=== PATIENT | female | born 2000 | race Asian ===

== ENCOUNTER 2020-06-03 12:58 | Inpatient (IN) ==
[2020-06-03] MEDS ORDERED: SODIUM CHLORIDE 0.9% 1000ML 1,000 ML IV ONE (13:42)
[2020-06-03] MEDS ORDERED: ALBUTEROL HFA 8 GM INHALER INH ONE (13:42)
[2020-06-03] MEDS ORDERED: KETOROLAC TROMETHAMINE 15 MG/ML VIAL IV STA (13:42)
[2020-06-03] MEDS ORDERED: ACETAMINOPHEN 500 MG TAB PO STA (13:42)
--- NOTE | 2020-06-03 13:52 | Emergency Department Note ---
Impression & Plan SOB (shortness of breath), Pneumonia, Leukocytosis ED Provider Note NAME: JETHRO BALDERAS AGE: 19 SEX: F : 2000 ARRIVES VIA: Walk-In INFORMANT: [Patient] ED PROVIDER(S): [Marito Mcdermott MD] CHIEF COMPLAINT: Short of breath HISTORY OF PRESENT ILLNESS: The patient is a 19-year-old female presents to the ER with body aches, fever and some shortness of breath. The patient states that her symptoms started early this morning. The patient states that this weekend, 5 days ago, she felt similar for 1 day. She was tested over the weekend for Covid and was negative. Her symptoms resolved over the last few days but then returned today. There has been no stuffy nose or sore throat. She has a slight cough. She had some nausea with some vomiting. No diarrhea. No abdominal or chest pain. The patient states that she has not had urinary complaints. She has no issue with her taste or smell. Because of the return of symptoms, she presents to the ED. She is a student at [employer] but has had no known Covid exposures. REVIEW OF SYSTEMS: See HPI for pertinent positives and negatives. A total of ten systems were reviewed and were otherwise negative. PMHx/PSHx: See Below SOCIAL HISTORY: See Below. PHYSICAL EXAM: GENERAL: Patient is in no acute distress. HEENT: No acute trauma, normocephalic atraumatic, mucous membranes moist, no nasal congestion, no scleral icterus. No throat erythema or exudate. NECK: No stridor, no adenopathy, no meningismus, trachea is midline. LUNGS: Mildly tachycardic, regular rhythm, no murmurs. HEART: Without murmurs gallops or rubs, regular rate and rhythm. ABDOMEN: Soft, nontender, bowel sounds positive, no hernias, no peritonitis. EXTREMITIES: No cyanosis or edema, full range of motion of all the joints wit hout pain or difficulty, no signs for acute trauma. NEUROLOGIC: Oriented x 3, no acute motor or sensory deficits, no focal weakness. SKIN: No rash, no jaundice, no diaphoresis. DIFFERENTIAL DIAGNOSIS: Sepsis, UTI, pneumonia, metabolic abnormality, influenza, COVID-19, electrolyte abnormalities, cardiac sources, cellulitis, UTI, bacteremia, as well as other pathologies. EMERGENCY DEPARTMENT COURSE/PROCEDURES: ECG: Indication was shortness of breath. The ECG shows a sinus tachycardia with a rate of 113. There is some nonspecific ST change. The QTc is 436. There is no ST elevation, no PVCs. Continuous Cardiac Monitoring: An order was placed for continuous cardiac monitoring. The monitor shows a rate of 88 with normal sinus rhythm. MEDICAL DECISION MAKING: There is a significant leukocytosis at 32,000, this certainly could be consistent with infection. There is a normal hemoglobin and platelet count. No significant electrolyte abnormality or kidney failure. Lactic acid level was slightly elevated indicating infection/potential sepsis. Bilirubin was slightly elevated. Procalcitonin level was slightly elevated. testing was negative. Urinalysis shows contamination, no obvious infection. Covid testing and influenza testing returned negative. Chest x-ray showed some generalized congestion to my eye, there was no obvious focal pneumonia. Chest CT does show evidence for a right-sided pneumonia. No pulmonary embolus noted. The patient presents febrile, tachycardic and short of breath. She received IV saline, 1 L. She was given IV Toradol for her body aches. She received IV cefepime as empiric antibiotic coverage. She was given albuterol via MDI, oral Tylenol. Patient is comfortable. Given her leukocytosis, given her dyspnea and findings on CT, I do think hospitalization is warranted. I spoke to the patient and correctional case manager. The on-call hospitalist was consulted. The pneumonia found by work-up certainly explains her presentation. Past Med/Surg History Medical History No significant medical problems Social History Smoking Status: Never smoker Hx Alcohol Use: Yes Alcohol type: beer and wine Hx Substance Use: No Preferred Language: True Fit Communication Ability: Effective Hydrographic Surveyor Required: No Beliefs That Will Affect Care: None Current Living Situation Comment: 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[employer] Other Information That Helps Us Care for You: No Feels Safe at Home: Yes Safety Concerns: Feels Safe At This Time Assistive Devices: Glasses Allergies Allergies Allergy/AdvReac Type Severity Reaction Status Date / Time No Known Allergies Allergy Unverified 06/03/20 15:09 Home Meds Home Medications Medication Instructions Recorded Confirmed chlorpheniramine-dextromethorp 1 ea PO UD 06/03/20 06/03/20 [Cough Syrup] ibuprofen [Advil] 400 mg PO Q6H PRN 06/03/20 06/03/20 Results & Data (ED) Vital Signs Vital Signs - 24 hr 06/03/20 13:09 06/03/20 14:10 06/03/20 15:07 Temperature 38.9 C H Temperature Source Temporal Artery Scan Pulse Rate 129 H 115 H Pulse Rate [Left] Pulse Rate from SpO2 Sensor 114 H Respiratory Rate 20 32 H Respiratory Effort / Characteristics Short of Breath SOB on Exertion Blood Pressure 110/65 Blood Pressure [Right Arm] Blood Pressure Mean 80 Blood Pressure Mean [Right Arm] Blood Pressure Position Sitting Blood Pressure Position [Right Arm] Pulse Oximetry 91 99 Oxygen Delivery Method Room Air Room Air Oxygen Flow Rate Sepsis Recent Fever Within 48 Hours Yes Sepsis New/Unexplained Change in Mental Status No Sepsis Action Taken by Nursing No Action Required 06/03/20 15:08 06/03/20 15:10 06/03/20 15:11 Temperature 37.5 C Temperature Source Oral Pulse Rate 115 H 115 H Pulse Rate [Left] 113 H Pulse Rate from SpO2 Sensor 114 H 114 H Respiratory Rate 24 30 H 42 H Respiratory Effort / Characteristics Short of Breath Blood Pressure 103/64 Blood Pressure [Right Arm] 103/64 Blood Pressure Mean 77 Blood Pressure Mean [Right Arm] 77 Blood Pressure Position Blood Pressure Position [Right Arm] Lying Pulse Oximetry 99 100 99 Oxygen Delivery Method Nasal Cannula Nasal Cannula Oxygen Flow Rate 2 Sepsis Recent Fever Within 48 Hours Sepsis New/Unexplained Change in Mental Status Sepsis Action Taken by Nursing 06/03/20 15:20 06/03/20 15:30 06/03/20 16:01 Temperature Temperature Source Pulse Rate 113 H 114 H 118 H Pulse Rate [Left] Pulse Rate from SpO2 Sensor 113 H 114 H Respiratory Rate 41 H 48 H 34 H Respiratory Effort / Characteristics Blood Pressure Blood Pressure [Right Arm] Blood Pressure Mean Blood Pressure Mean [Right Arm] Blood Pressure Position Blood Pressure Position [Right Arm] Pulse Oximetry 98 98 Oxygen Delivery Method Oxygen Flow Rate Sepsis Recent Fever Within 48 Hours Sepsis New/Unexplained Change in Mental Status Sepsis Action Taken by Nursing 06/03/20 16:10 06/03/20 16:20 06/03/20 16:26 Temperature Temperature Source Pulse Rate 115 H 113 H 105 H Pulse Rate [Left] Pulse Rate from SpO2 Sensor 106 H Respiratory Rate 54 H 46 H 24 Respiratory Effort / Characteristics Blood Pressure 103/59 L Blood Pressure [Right Arm] Blood Pressure Mean 73 Blood Pressure Mean [Right Arm] Blood Pressure Position Blood Pressure Position [Right Arm] Pulse Oximetry 98 Oxygen Delivery Method Oxygen Flow Rate Sepsis Recent Fever Within 48 Hours Sepsis New/Unexplained Change in Mental Status Sepsis Action Taken by Nursing 06/03/20 16:30 06/03/20 17:00 06/03/20 17:30 Temperature Temperature Source Pulse Rate 110 H 108 H 100 H Pulse Rate [Left] Pulse Rate from SpO2 Sensor 110 H 108 H 100 H Respiratory Rate 22 22 22 Respiratory Effort / Characteristics Blood Pressure Blood Pressure [Right Arm] Blood Pressure Mean Blood Pressure Mean [Right Arm] Blood Pressure Position Blood Pressure Position [Right Arm] Pulse Oximetry 98 97 100 Oxygen Delivery Method Oxygen Flow Rate Sepsis Recent Fever Within 48 Hours Sepsis New/Unexplained Change in Mental Status Sepsis Action Taken by Skilled Nursing Medications Current Medication List: was personally reviewed by me Laboratory Data Attestation: I reviewed the patient's lab results. Result diagrams: 06/03/20 14:35 06/03/20 14:35 Lab Results 06/03/20 06/03/20 06/03/20 Range/Units 14:03 14:03 14:03 WBC (4.8-10.8) K/uL RBC (4.2-5.4) M/uL Hgb (12.0-16.0) g/dL Hct (37-47) % MCV (80-100) fL MCH (25-34) pg MCHC (32-36) g/dL RDW Std Deviation (36.4-46.3) fL RDW Coeff of Tevin (11.5-14.5) % Plt Count (130-400) K/uL MPV (7.4-10.4) fL Immature Gran % (Auto) % Neut % (Auto) % Lymph % (Auto) % [place] % (Auto) % Eos % (Auto) % Baso % (Auto) % Neut # (Auto) (1.4-6.5) K/uL Lymph # (Auto) (1.2-3.4) K/uL [place] # (Auto) (0.11-0.59) K/uL Eos # (Auto) (0-0.5) K/uL Baso # (Auto) (0-0.2) K/uL Immature Gran # (Auto) (0.00-0.02) K/uL ESR (0-21) mm/hr Sodium (136-145) mmol/L Potassium (3.5-5.1) mmol/L Chloride (98-107) mmol/L Carbon Dioxide (21-32) mmol/L Anion Gap (3-11) BUN (7-18) mg/dl Creatinine (0.6-1.2) mg/dl Est Cr Clr Drug Dosing ml/min Est GFR ( Amer) Est GFR (Non-Af Amer) BUN/Creatinine Ratio (10-20) Glucose (70-99) mg/dl Lactate (0.4-2.0) mmol/L Calcium (8.5-10.1) mg/dl Total Bilirubin (0.2-1) mg/dl AST (15-37) U/L ALT (12-78) U/L Alkaline Phosphatase (45-117) U/L C-Reactive Protein (0-0.29) mg/dl Total Protein (6.4-8.2) gm/dl Albumin (3.4-5.0) gm/dl Globulin (2.5-4.0) gm/dl Albumin/Globulin Ratio (0.9-2) Procalcitonin (0-0.5) ng/ml HCG, Qual (Negative) Urine Color Urine Appearance (Clear) Urine pH (4.5-7.5) Ur Specific [place] (1.000-1.030) Urine Protein (Negative) Urine Glucose (UA) (Negative) Urine Ketones (Negative) Urine Blood (Negative) Urine Nitrite (Negative) Urine Bilirubin (Negative) Urine Urobilinogen (Negative) Ur Leukocyte Esterase (Negative) Urine WBC (Auto) (0-5) /hpf Urine RBC (Auto) (0-4) /hpf U Hyaline Cast (Auto) (0-5) /lpf U Epithel Cells (Auto) (0-5) /lpf Urine Bacteria (Auto) (Negative) COVID-19 Eval [facility] Influ A Molecular Assay Negative (Negative) Influ B Molecular Assay Negative (Negative) SARS-CoV-2, RNA, NAAT NEGATIVE (NEGATIVE) 02/25/21 02/25/21 02/25/21 Range/Units 14:35 14:35 14:35 WBC 32.36 H* (4.8-10.8) K/uL RBC 4.82 (4.2-5.4) M/uL Hgb 14.6 (12.0-16.0) g/dL Hct 41.2 (37-47) % MCV 85.5 (80-100) fL MCH 30.3 (25-34) pg MCHC 35.4 (32-36) g/dL RDW Std Deviation 40.4 (36.4-46.3) fL RDW Coeff of Tevin 12.8 (11.5-14.5) % Plt Count 281 (130-400) K/uL MPV 9.4 (7.4-10.4) fL Immature Gran % (Auto) 0.4 % Neut % (Auto) 96.6 % Lymph % (Auto) 1.5 % [place] % (Auto) 1.4 % Eos % (Auto) 0.0 % Baso % (Auto) 0.1 % Neut # (Auto) 31.28 H (1.4-6.5) K/uL Lymph # (Auto) 0.49 L (1.2-3.4) K/uL [place] # (Auto) 0.44 (0.11-0.59) K/uL Eos # (Auto) 0.01 (0-0.5) K/uL Baso # (Auto) 0.02 (0-0.2) K/uL Immature Gran # (Auto) 0.12 H (0.00-0.02) K/uL ESR (0-21) mm/hr Sodium 134 L (136-145) mmol/L Potassium 3.7 (3.5-5.1) mmol/L Chloride 102 (98-107) mmol/L Carbon Dioxide 25 (21-32) mmol/L Anion Gap 7.0 (3-11) BUN 10 (7-18) mg/dl Creatinine 0.77 (0.6-1.2) mg/dl Est Cr Clr Drug Dosing 108.2 ml/min Est GFR ( Amer) 127.9 Est GFR (Non-Af Amer) 110.4 BUN/Creatinine Ratio 13.4 (10-20) Glucose 113 H (70-99) mg/dl Lactate 2.3 H* (0.4-2.0) mmol/L Calcium 9.5 (8.5-10.1) mg/dl Total Bilirubin 1.5 H (0.2-1) mg/dl AST 10 L (15-37) U/L ALT 31 (12-78) U/L Alkaline Phosphatase 62 (45-117) U/L C-Reactive Protein (0-0.29) mg/dl Total Protein 7.8 (6.4-8.2) gm/dl Albumin 4.0 (3.4-5.0) gm/dl Globulin 3.8 (2.5-4.0) gm/dl Albumin/Globulin Ratio 1.0 (0.9-2) Procalcitonin (0-0.5) ng/ml HCG, Qual (Negative) Urine Color Urine Appearance (Clear) Urine pH (4.5-7.5) Ur Specific [place] (1.000-1.030) Urine Protein (Negative) Urine Glucose (UA) (Negative) Urine Ketones (Negative) Urine Blood (Negative) Urine Nitrite (Negative) Urine Bilirubin (Negative) Urine Urobilinogen (Negative) Ur Leukocyte Esterase (Negative) Urine WBC (Auto) (0-5) /hpf Urine RBC (Auto) (0-4) /hpf U Hyaline Cast (Auto) (0-5) /lpf U Epithel Cells (Auto) (0-5) /lpf Urine Bacteria (Auto) (Negative) COVID-19 Eval Order Influ A Molecular Assay (Negative) Influ B Molecular Assay (Negative) SARS-CoV-2, RNA, NAAT (NEGATIVE) 06/03/20 06/03/20 06/03/20 Range/Units 14:35 14:35 14:35 WBC (4.8-10.8) K/uL RBC (4.2-5.4) M/uL Hgb (12.0-16.0) g/dL Hct (37-47) % MCV (80-100) fL MCH (25-34) pg MCHC (32-36) g/dL RDW Std Deviation (36.4-46.3) fL RDW Coeff of Tevin (11.5-14.5) % Plt Count (130-400) K/uL MPV (7.4-10.4) fL Immature Gran % (Auto) % Neut % (Auto) % Lymph % (Auto) % [place] % (Auto) % Eos % (Auto) % Baso % (Auto) % Neut # (Auto) (1.4-6.5) K/uL Lymph # (Auto) (1.2-3.4) K/uL [place] # (Auto) (0.11-0.59) K/uL Eos # (Auto) (0-0.5) K/uL Baso # (Auto) (0-0.2) K/uL Immature Gran # (Auto) (0.00-0.02) K/uL ESR 11 (0-21) mm/hr Sodium (136-145) mmol/L Potassium (3.5-5.1) mmol/L Chloride (98-107) mmol/L Carbon Dioxide (21-32) mmol/L Anion Gap (3-11) BUN (7-18) mg/dl Creatinine (0.6-1.2) mg/dl Est Cr Clr Drug Dosing ml/min Est GFR ( Amer) Est GFR (Non-Af Amer) BUN/Creatinine Ratio (10-20) Glucose (70-99) mg/dl Lactate (0.4-2.0) mmol/L Calcium (8.5-10.1) mg/dl Total Bilirubin (0.2-1) mg/dl AST (15-37) U/L ALT (12-78) U/L Alkaline Phosphatase (45-117) U/L C-Reactive Protein 1.14 H (0-0.29) mg/dl Total Protein (6.4-8.2) gm/dl Albumin (3.4-5.0) gm/dl Globulin (2.5-4.0) gm/dl Albumin/Globulin Ratio (0.9-2) Procalcitonin 0.90 H (0-0.5) ng/ml HCG, Qual Negative (Negative) Urine Color Urine Appearance (Clear) Urine pH (4.5-7.5) Ur Specific [place] (1.000-1.030) Urine Protein (Negative) Urine Glucose (UA) (Negative) Urine Ketones (Negative) Urine Blood (Negative) Urine Nitrite (Negative) Urine Bilirubin (Negative) Urine Urobilinogen (Negative) Ur Leukocyte Esterase (Negative) Urine WBC (Auto) (0-5) /hpf Urine RBC (Auto) (0-4) /hpf U Hyaline Cast (Auto) (0-5) /lpf U Epithel Cells (Auto) (0-5) /lpf Urine Bacteria (Auto) (Negative) COVID-19 Eval Order Influ A Molecular Assay (Negative) Influ B Molecular Assay (Negative) SARS-CoV-2, RNA, NAAT (NEGATIVE) 06/03/20 06/03/20 Range/Units 16:28 16:38 WBC (4.8-10.8) K/uL RBC (4.2-5.4) M/uL Hgb (12.0-16.0) g/dL Hct (37-47) % MCV (80-100) fL MCH (25-34) pg MCHC (32-36) g/dL RDW Std Deviation (36.4-46.3) fL RDW Coeff of Tevin (11.5-14.5) % Plt Count (130-400) K/uL MPV (7.4-10.4) fL Immature Gran % (Auto) % Neut % (Auto) % Lymph % (Auto) % [place] % (Auto) % Eos % (Auto) % Baso % (Auto) % Neut # (Auto) (1.4-6.5) K/uL Lymph # (Auto) (1.2-3.4) K/uL [place] # (Auto) (0.11-0.59) K/uL Eos # (Auto) (0-0.5) K/uL Baso # (Auto) (0-0.2) K/uL Immature Gran # (Auto) (0.00-0.02) K/uL ESR (0-21) mm/hr Sodium (136-145) mmol/L Potassium (3.5-5.1) mmol/L Chloride (98-107) mmol/L Carbon Dioxide (21-32) mmol/L Anion Gap (3-11) BUN (7-18) mg/dl Creatinine (0.6-1.2) mg/dl Est Cr Clr Drug Dosing ml/min Est GFR ( Amer) Est GFR (Non-Af Amer) BUN/Creatinine Ratio (10-20) Glucose (70-99) mg/dl Lactate 1.9 (0.4-2.0) mmol/L Calcium (8.5-10.1) mg/dl Total Bilirubin (0.2-1) mg/dl AST (15-37) U/L ALT (12-78) U/L Alkaline Phosphatase (45-117) U/L C-Reactive Protein (0-0.29) mg/dl Total Protein (6.4-8.2) gm/dl Albumin (3.4-5.0) gm/dl Globulin (2.5-4.0) gm/dl Albumin/Globulin Ratio (0.9-2) Procalcitonin (0-0.5) ng/ml HCG, Qual (Negative) Urine Color Yellow Urine Appearance Clear (Clear) Urine pH 6.5 (4.5-7.5) Ur Specific [place] 1.023 (1.000-1.030) Urine Protein Negative (Negative) Urine Glucose (UA) Negative (Negative) Urine Ketones Negative (Negative) Urine Blood Negative (Negative) Urine Nitrite Negative (Negative) Urine Bilirubin Negative (Negative) Urine Urobilinogen Negative (Negative) Ur Leukocyte Esterase 2+ H (Negative) Urine WBC (Auto) 10-30 H (0-5) /hpf Urine RBC (Auto) 0-4 (0-4) /hpf U Hyaline Cast (Auto) 0 (0-5) /lpf U Epithel Cells (Auto) >30 H (0-5) /lpf Urine Bacteria (Auto) 1+ H (Negative) COVID-19 Eval Order Influ A Molecular Assay (Negative) Influ B Molecular Assay (Negative) SARS-CoV-2, RNA, NAAT (NEGATIVE) Administered Medications Enoxaparin Sodium (Enoxaparin Inj 40 Mg/0.4 Ml Syr) 40 mg SQ Q24H PRADIP Stop: 07/03/20 19:59 Last Admin: 06/03/20 20:09 Dose: Not Given Documented by: [id number] Azithromycin 500 mg/ Dextrose 255 mls @ 125 mls/hr IV Q24H PRADIP; Protocol Stop: 06/08/20 17:14 Last Infusion: 06/03/20 20:15 Dose: 0 mls/hr Documented by: [id number] Admin: 06/03/20 18:04 Dose: 125 mls/hr Documented by: [id number] Lactated Ringer's (Lr) 1,000 mls @ 125 mls/hr IV .Q8H PRADIP Stop: 07/03/20 19:59 Last Admin: 06/03/20 19:56 Dose: 125 mls/hr Documented by: [id number] Discontinued Medications Acetaminophen (Acetaminophen 500 Mg Tab) 1,000 mg PO NOW STA Stop: 06/03/20 13:43 Last Admin: 06/03/20 14:46 Dose: 1,000 mg Documented by: [id number] Albuterol (Albuterol Hfa 8 Gm Inhaler) 2 puffs INH NOW ONE Stop: 06/03/20 13:43 Last Admin: 06/03/20 14:47 Dose: 2 puffs Documented by: [id number] Sodium Chloride (Nss 1000ml) 1,000 mls @ 999 mls/hr IV .Q1H1M ONE Stop: 06/03/20 14:42 Last Infusion: 06/03/20 15:57 Dose: 0 mls/hr Documented by: [id number] Admin: 06/03/20 14:46 Dose: 999 mls/hr Documented by: [id number] Cefepime HCl (Maxipime) 2,000 mg in 20 mls @ 5 mls/min IV NOW STA; Protocol Stop: 06/03/20 15:44 Last Admin: 06/03/20 16:24 Dose: 5 mls/min Documented by: [id number] Ioversol (Optiray 320 125ml) 118 ml IV ONCE ONE Stop: 06/03/20 15:36 Last Admin: 06/03/20 15:35 Dose: 118 ml Documented by: [id number] Ketorolac Tromethamine (Ketorolac Tromethamine 15 Mg/Ml Vial) 15 mg IV NOW STA Stop: 06/03/20 13:43 Last Admin: 06/03/20 14:46 Dose: 15 mg Documented by: [id number] Imaging Data Radiologist's Impression: XR chest 1V portable HISTORY: Shortness of breath. COMPARISON: None. FINDINGS: The lungs are clear. Cardiac silhouette is normal in size. No pleural effusions. No pneumothorax. IMPRESSION: No acute process. CT ANGIOGRAM OF THE CHEST CLINICAL HISTORY: Shortness of breath. Trauma history. Possible acute pulmonary embolism. COMPARISON STUDY: Chest x-ray dated 06/03/2020 TECHNIQUE: Following the IV administration of 118 mL of Optiray-320, CT angiogram of the thorax was performed from the thoracic inlet to the lung bases utilizing the pulmonary embolus protocol. Images are reviewed in the axial, sagittal, and coronal planes. IV contrast was administered without complication. MIP imaging was performed. A dose lowering technique was utilized adhering to the principles of ALARA. CT DOSE: 233.04 mGy.cm FINDINGS: No pathologically enlarged axillary mediastinal or hilar lymph nodes were visualized. There was no evidence of thoracic aortic dilatation. There were no pulmonary artery filling defects to indicate acute pulmonary embolism. Evaluation of subsegmental pulmonary artery branches is somewhat limited due to motion artifact. No pleural effusions are visualized. There are right middle lobe and bibasilar pulmonary airspace opacities. Atelecta sis favored over pneumonia. Clinical and/or imaging follow-up recommended. There is no pneumothorax. IMPRESSION: 1. Motion compromised study 2. No evidence of central pulmonary embolism, but suboptimal evaluation of subsegmental pulmonary artery branches. Correlation with leg ultrasonography should be considered there is a strong clinical suspicion over the presence of acute pulmonary embolism 3. Right middle lobe and bibasilar pulmonary airspace opacities. Atelectasis favored over pneumonia. Clinical and/or radiographic follow-up recommended. Discharge Plan Visit Data Chief Complaint: Shortness of Breath/Dyspnea Stated Complaint: SHORTNESS OF BREATH ED Provider: Marito Mcdermott Discharge Problem: SOB (shortness of breath), Pneumonia, Leukocytosis Patient Disposition: Admitted As Inpatient Condition: Fair Discharge Instructions Interventions: ED Discharge Assessment Last Done: 06/03/20 19:02 Discharge Problem: Pneumonia Qualifiers: Pneumonia type: due to unspecified organism Laterality: right Lung location: unspecified part of lung Qualified Code(s): J18.9 - Pneumonia, unspecified organism Leukocytosis Qualifiers: Leukocytosis type: unspecified Qualified Code(s): D72.829 - Elevated white blood cell count, unspecified
--- NOTE | 2020-06-03 14:29 | XRay Report ---
XR chest 1V portable HISTORY: Shortness of breath. COMPARISON: None. FINDINGS: The lungs are clear. Cardiac silhouette is normal in size. No pleural effusions. No pneumot horax. IMPRESSION: No acute process. ACT 112: Negative or not required by law. Electronically signed by: Mele Andrade M.D. 06/03/2020 2:28 PM
[2020-06-03 14:31] LABS: Influenza A virus by PCR Negative (Negative); Influenza B virus by PCR Negative (Negative)
[2020-06-03 15:11] LABS: BUN Creatinine Ratio 13.4 (10-20); Calcium 9.5 mg/dl (8.5-10.1); Creatinine Clr Calc Pharmacy 108.2 ml/min; Est GFR (African American) 127.9; Est GFR (Non-African American) 110.4; Potassium 3.7 mmol/L (3.5-5.1)
[2020-06-03 15:14] LABS: Bilirubin,Total 1.5 mg/dl (0.2-1); Globulin 3.8 gm/dl (2.5-4.0); Total Protein 7.8 gm/dl (6.4-8.2)
[2020-06-03 15:23] LABS: Pregnancy Test, Serum Negative (Negative)
[2020-06-03] MEDS ORDERED: OPTIRAY 320 125ml IV ONE (15:35)
[2020-06-03 15:41] LABS: Basophils # (auto) 0.02 K/uL (0-0.2); Basophils % (auto) 0.1 %; Eosinophils # (auto) 0.01 K/uL (0-0.5); Hematocrit (blood only) 41.2 % (37-47); Hemoglobin 14.6 g/dL (12.0-16.0); Immature Granulocytes # (auto) 0.12 K/uL (0.00-0.02); Immature Granulocytes % (auto) 0.4 %; Lymphocytes # (auto) 0.49 K/uL (1.2-3.4); Lymphocytes % (auto) 1.5 %; Mean Corpuscular Hemoglobin 30.3 pg (25-34); Mean Corpuscular Hgb Conc 35.4 g/dL (32-36); Mean Corpuscular Volume 85.5 fL (80-100); Mean Platelet Volume 9.4 fL (7.4-10.4); Monocytes # (auto) 0.44 K/uL (0.11-0.59); Monocytes % (auto) 1.4 %; Neutrophils # (auto) 31.28 K/uL (1.4-6.5); Neutrophils % (auto) 96.6 %; Platelet Count 281 K/uL (130-400); RDW Coefficient of Variation 12.8 % (11.5-14.5); RDW Standard Deviation 40.4 fL (36.4-46.3); Red Blood Count 4.82 M/uL (4.2-5.4); White Blood Count 32.36 K/uL (4.8-10.8)
[2020-06-03] MEDS ORDERED: CEFEPIME 2,000 MG/20 ML VIAL IV STA (15:41)
--- NOTE | 2020-06-03 15:51 | CT Scan Report ---
CT ANGIOGRAM OF THE CHEST CLINICAL HISTORY: Shortness of breath. Trauma history. Possible acute pulmonary embolism. COMPARISON STUDY: Chest x-ray dated 06/03/2020 TECHNIQUE: Following the IV administration of 118 mL of Optiray-320, CT angiogram of the thorax was p erformed from the thoracic inlet to the lung bases utilizing the pulmonary embolus protocol. Images a re reviewed in the axial, sagittal, and coronal planes. IV contrast was administered without complica tion. MIP imaging was performed. A dose lowering technique was utilized adhering to the principles o f ALARA. CT DOSE: 233.04 mGy.cm FINDINGS: No pathologically enlarged axillary mediastinal or hilar lymph nodes were visualized. There was no evidence of thoracic aortic dilatation. There were no pulmonary artery filling defects to indicate acute pulmonary embolism. Evaluation of dominguez bsegmental pulmonary artery branches is somewhat limited due to motion artifact. No pleural effusions are visualized. There are right middle lobe and bibasilar pulmonary airspace opacities. Atelectasis favored over pneu monia. Clinical and/or imaging follow-up recommended. There is no pneumothorax. IMPRESSION: 1. Motion compromised study 2. No evidence of central pulmonary embolism, but suboptimal evaluation of subsegmental pulmonary art johnathon branches. Correlation with leg ultrasonography should be considered there is a strong clinical dominguez spicion over the presence of acute pulmonary embolism 3. Right middle lobe and bibasilar pulmonary airspace opacities. Atelectasis favored over pneumonia. Clinical and/or radiographic follow-up recommended. ACT 112: Negative or not required by law. Electronically signed by: Ronald Cook M.D. 06/03/2020 3:49 PM
[2020-06-03 16:47] LABS: Appearance Urine Clear (Clear); Bacteria Urine Automated 1+ (Negative); Bilirubin Urine Negative (Negative); Blood Urine Negative (Negative); Cast Urine Automated 0 /lpf (0-5); Color Urine Yellow; Epithelial Cell Urine Auto >30 /lpf (0-5); Glucose Urine UA Negative (Negative); Ketones Urine Negative (Negative); Leukocyte Esterase Urine 2+ (Negative); Nitrite Urine Negative (Negative); Protein Urine Negative (Negative); Specific Gravity Urine 1.023 (1.000-1.030); Urobilinogen Urine Negative (Negative); pH Urine 6.5 (4.5-7.5)
--- NOTE | 2020-06-03 16:58 | Electrocardiogram Report ---
Test Reason : Blood Pressure : / mmHG Vent. Rate : 113 BPM Atrial Rate : 113 BPM P-R Int : 180 ms QRS Dur : 082 ms QT Int : 318 ms P-R-T Axes : 059 070 045 degrees QTc Int : 436 ms Sinus tachycardia Possible Left atrial enlargement Incomplete right bundle branch block Nonspecific T wave abnormality Abnormal ECG No previous ECGs available Confirmed by Nabil Betancur ([id number]) on 06/03/2020 4:58:20 PM Referred By: REFERRED SELF Confirmed By:Joseph Betancur
--- NOTE | 2020-06-03 17:16 | History & Physical Report ---
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 very low suspicion for PE (3) Leukocytosis: WBC 32 with Neutorphil 31- Lymph 0.49. - Mildly heme concentrated - Volume resuscitate and recheck CBC tonight and in the morning. - Rest of cell lines normal - Peripheral smear if remains elevated - No weight loss or recurrent infections per patient, no splenomegaly on palpation and spleen not tender. - No bruising and no lymphadenopathy palpated - ESR/CRP pending - patient with no meningeal signs. - Urine with 30 WBC with epithelial cells-- will be covered with above antibiotics but likely contaminated. (4) DVT prophylaxis: SCDs Lovenox Early ambulation History of Present Illness Primary Care Provider: [facility] 19 YOF with no significant medical history. The patient is a student at [employer]. Recent travel to [place] 2 weeks ago via air plane. No recent sick contacts with her family or her roommates. She denies drug use or unprotected sex. Patient had about 2 day history of headache, body aches, and fever. Awoke this morning with shortness of breath and cough. The patient cough is productive at times with thick white yellow sputum. The patient initial COVID test is negative. The cough is associated with deep breath and other symptoms as above. She was taking Mucinex and Sudafed cold/allergy for 2 days with mild relief of symptoms. Patient had a CXR done in the ER and CT scan of the chest that was done. Patient is tachypneic into the high 20's on manual count and tachycardic, mildly hypoxic. She is not conversational dyspneic and denies any chest pain. Her roommates have 2 cats, that she does not interact with or empty the litter box. Her parents have no pets. WBC are 32, Patient will be admitted for pneumonia, IV hydration, IV antibiotics, follow clinical symptoms and biomarkers. Allergies Allergy/AdvReac Type Severity Reaction Status Date / Time No Known Allergies Allergy Unverified 06/03/20 15:09 Home Medications Medication Instructions Recorded Confirmed Type chlorpheniramine-dextromethorp 1 ea PO UD 06/03/20 06/03/20 History [Cough Syrup] ibuprofen [Advil] 400 mg PO Q6H PRN 06/03/20 06/03/20 History Past Med/Surg History Medical History No significant medical problems Social History Smoking Status: Never smoker Hx Alcohol Use: Yes Alcohol type: beer and wine Hx Substance Use: No Preferred Language: [place] Croatian Communication Ability: Effective Boot Lace Cutter Machine Required: No Beliefs That Will Affect Care: None Current Living Situation Comment: 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[employer] [facility] Other Information That Helps Us Care for You: No Feels Safe at Home: Yes Safety Concerns: Feels Safe At This Time Assistive Devices: Glasses Review of Systems Review of Systems: REVIEW OF SYSTEMS: Constitutional: (+) fever, sweats or chills Eyes: No diplopia, no worsening or blurred vision ENT: normal hearing, no trouble swallowing Respiratory: (+) cough, sputum, dyspnea at rest or on exertion Cardiovascular: No chest pain, tightness or palpitations Abdomen: No pain, nausea, vomiting, diarrhea or constipation Musculoskeletal: (+) joint pain, calf pain, swelling Neurologic: No weakness, numbness/tingling, or balance problems Psychiatric: No anxiety or depression Skin: No rash or itch Physical Exam Physical Exam: PHYSICAL EXAM: General: awake, alert, no apparent distress Head: Normocephalic, atraumatic ENT: PERRL, EOMI, no pharyngeal exudate, mucous membranes moist Neuro: AAO x 3, speech clear and appropriate, strength intact bilaterally 5/5, sensation intact and equal all extremities and dermatones, no pronator drift Chest: equal rise and fall of the chest, no accessory muscle use, tachypneic, clear to auscultation upper lobes bilateral, decreased right middle/lower lobe with egophany, on 2L NC, Cardiac: Regular rate and rhythm, telemetry reviewed, skin warm dry, cap refill <3 seconds, peripheral pusles +2 no JVD, no murmur, no JVD, no edema GI: NABS x 4 quadrants, soft, nontender to palpation, no rebound, guarding or tenderness : Spontaneously voiding, no pain, no CVA tenderness, Extremities: Normal inspection, no peripheral edema or erythema, calfs nonten mckenna to palpation Psych: Normal mood and affect MSK: No calf pain or tenderness, patient active Skin: no rash or erythema Results & Data Results & Data ([facility]) Vital Signs (Past 12 Hours) Vital Signs Temp Pulse Pulse Resp BP BP Pulse Ox 06/03/20 17:00 108 H 22 97 06/03/20 16:30 110 H 22 98 06/03/20 16:26 105 H 24 103/59 L 98 06/03/20 16:20 113 H 46 H 06/03/20 16:10 115 H 54 H 06/03/20 16:01 118 H 34 H 06/03/20 15:30 114 H 48 H 98 06/03/20 15:20 113 H 41 H 98 06/03/20 15:11 115 H 42 H 99 06/03/20 15:10 115 H 30 H 103/64 100 06/03/20 15:08 37.5 C 113 H 24 103/64 99 06/03/20 15:07 115 H 32 H 99 06/03/20 13:09 38.9 C H 129 H 20 110/65 91 Laboratory Results Abnormal lab results 06/03/20 06/03/20 06/03/20 Range/Units 14:35 14:35 14:35 WBC 32.36 H* (4.8-10.8) K/uL Neut # (Auto) 31.28 H (1.4-6.5) K/uL Lymph # (Auto) 0.49 L (1.2-3.4) K/uL Immature Gran # (Auto) 0.12 H (0.00-0.02) K/uL Sodium 134 L (136-145) mmol/L Glucose 113 H (70-99) mg/dl Lactate 2.3 H* (0.4-2.0) mmol/L Total Bilirubin 1.5 H (0.2-1) mg/dl AST 10 L (15-37) U/L Procalcitonin (0-0.5) ng/ml Ur Leukocyte Esterase (Negative) Urine WBC (Auto) (0-5) /hpf U Epithel Cells (Auto) (0-5) /lpf Urine Bacteria (Auto) (Negative) 06/03/20 06/03/20 Range/Units 14:35 16:28 WBC (4.8-10.8) K/uL Neut # (Auto) (1.4-6.5) K/uL Lymph # (Auto) (1.2-3.4) K/uL Immature Gran # (Auto) (0.00-0.02) K/uL Sodium (136-145) mmol/L Glucose (70-99) mg/dl Lactate (0.4-2.0) mmol/L Total Bilirubin (0.2-1) mg/dl AST (15-37) U/L Procalcitonin 0.90 H (0-0.5) ng/ml Ur Leukocyte Esterase 2+ H (Negative) Urine WBC (Auto) 10-30 H (0-5) /hpf U Epithel Cells (Auto) >30 H (0-5) /lpf Urine Bacteria (Auto) 1+ H (Negative) Diagnostic Findings XR chest 1V portable HISTORY: Shortness of breath. COMPARISON: None. FINDINGS: The lungs are clear. Cardiac silhouette is normal in size. No pleural effusions. No pneumothorax. IMPRESSION: No acute process. Medications Administered CT ANGIOGRAM OF THE CHEST CLINICAL HISTORY: Shortness of breath. Trauma history. Possible acute pulmonary embolism. COMPARISON STUDY: Chest x-ray dated 06/03/2020 TECHNIQUE: Following the IV administration of 118 mL of Optiray-320, CT angiogram of the thorax was performed from the thoracic inlet to the lung bases utilizing the pulmonary embolus protocol. Images are reviewed in the axial, sagittal, and coronal planes. IV contrast was administered without complication. MIP imaging was performed. A dose lowering technique was utilized adhering to the principles of ALARA. CT DOSE: 233.04 mGy.cm FINDINGS: No pathologically enlarged axillary mediastinal or hilar lymph nodes were visualized. There was no evidence of thoracic aortic dilatation. There were no pulmonary artery filling defects to indicate acute pulmonary embolism. Evaluation of subsegmental pulmonary artery branches is somewhat limited due to motion artifact. No pleural effusions are visualized. There are right middle lobe and bibasilar pulmonary airspace opacities. Atelectasis favored over pneumonia. Clinical and/or imaging follow-up recommended. There is no pneumothorax. IMPRESSION: 1. Motion compromised study 2. No evidence of central pulmonary embolism, but suboptimal evaluation of subsegmental pulmonary artery branches. Correlation with leg ultrasonography should be considered there is a strong clinical suspicion over the presence of acute pulmonary embolism 3. Right middle lobe and bibasilar pulmonary airspace opacities. Atelectasis favored over pneumonia. Clinical and/or radiographic follow-up recommended. Supervising Physician Co-Signing Physician Notes I supervised ABELARDO Butcher on this admission. I interviewed and examined the patient independently of him. The plan is as written in his note except for any following changes/exceptions: None Pleasant 19yo [employer] [facility] [address] [facility] albert majoring in [employer] who presents with shortness of breath, fever, and chills. She was in [place] for break, and flew back about 3 weeks ago. About 2 days ago, she had one day of shortness of breath that resolved that day. Then today, she presented with fever, shortness of breath, and fatigue. Her CT chest is not incredibly impressive, but she does have some consolidations. Will treat with abx, but I am worried about other causes such as malignancy, so I did order a peripheral smear along with coagulation labs for the morning. PG Care Time/CCT Total # of Minutes Spent Total Time Spent with Patient: Total time spent is greater than 50% in coordination of care (as documented) at patient's floor/unit and/or counseling patient: Coding Level of Care Code 62804 Initial Inpt Care Lvl 3 Diagnoses Pneumonia J18.9 Laterality: right Lung location: middle lobe of lung Pneumonia type: due to unspecified organism Tachycardia R00.0 Leukocytosis D72.829 Leukocytosis type: unspecified DVT prophylaxis Z29.9 (1) Leukocytosis Leukocytosis type: unspecified Qualified Code(s): D72.829 - Elevated white blood cell count, unspecified (2) Pneumonia Laterality: right Lung location: middle lobe of lung Pneumonia type: due to unspecified organism Qualified Code(s): J18.9 - Pneumonia, unspecified organism
[2020-06-03 17:29] LABS: RBC Urine Automated 0-4 /hpf (0-4)
[2020-06-03] MEDS: AZITHROMYCIN 500 MG in DEXTROSE 5% 250 ML IV SCH (18:04)
[2020-06-03] MEDS ORDERED: ONDANSETRON INJ 2 MG/ML 2 ML VIAL IV PRN (19:20)
[2020-06-03] MEDS ORDERED: IBUPROFEN 200 MG TAB PO PRN (19:20)
[2020-06-03] MEDS: LACTATED RINGER'S 1,000 ML IV SCH (19:56)
[2020-06-03] MEDS: ENOXAPARIN INJ 40 MG/0.4 ML SYR SQ SCH (20:09)
[2020-06-03 21:48] LABS: Basophils # (auto) 0.04 K/uL (0-0.2); Basophils % (auto) 0.1 %; Eosinophils # (auto) 0.01 K/uL (0-0.5); Hematocrit (blood only) 38.9 % (37-47); Hemoglobin 13.8 g/dL (12.0-16.0); Immature Granulocytes # (auto) 0.34 K/uL (0.00-0.02); Immature Granulocytes % (auto) 0.8 %; Lymphocytes # (auto) 0.71 K/uL (1.2-3.4); Lymphocytes % (auto) 1.8 %; Mean Corpuscular Hemoglobin 30.1 pg (25-34); Mean Corpuscular Hgb Conc 35.5 g/dL (32-36); Mean Corpuscular Volume 84.7 fL (80-100); Mean Platelet Volume 9.3 fL (7.4-10.4); Monocytes # (auto) 0.44 K/uL (0.11-0.59); Monocytes % (auto) 1.1 %; Neutrophils # (auto) 38.99 K/uL (1.4-6.5); Neutrophils % (auto) 96.2 %; Platelet Count 235 K/uL (130-400); RDW Coefficient of Variation 12.8 % (11.5-14.5); RDW Standard Deviation 39.4 fL (36.4-46.3); Red Blood Count 4.59 M/uL (4.2-5.4); White Blood Count 40.53 K/uL (4.8-10.8)
[2020-06-04] MEDS: ACETAMINOPHEN 325 MG TAB PO PRN ×2 (00:13→22:20)
[2020-06-04] MEDS: LACTATED RINGER'S 1,000 ML IV SCH (03:53)
[2020-06-04] MEDS ORDERED: CEFEPIME 1,000 MG in SYRINGE 0 ML IV SCH (04:00)
[2020-06-04 06:12] LABS: Hematocrit (blood only) 33.7 % (37-47); Hemoglobin 11.8 g/dL (12.0-16.0); Mean Corpuscular Hemoglobin 29.9 pg (25-34); Mean Corpuscular Volume 85.3 fL (80-100); Mean Platelet Volume 9.1 fL (7.4-10.4); Platelet Count 224 K/uL (130-400); RDW Coefficient of Variation 12.7 % (11.5-14.5); RDW Standard Deviation 39.9 fL (36.4-46.3); Red Blood Count 3.95 M/uL (4.2-5.4); White Blood Count 26.39 K/uL (4.8-10.8)
[2020-06-04 06:32] LABS: Basophils # (auto) 0.01 K/uL (0-0.2); Eosinophils # (auto) 0.18 K/uL (0-0.5); Eosinophils % (auto) 0.7 %; Immature Granulocytes # (auto) 0.09 K/uL (0.00-0.02); Immature Granulocytes % (auto) 0.3 %; Lymphocytes # (auto) 1.74 K/uL (1.2-3.4); Lymphocytes % (auto) 6.6 %; Monocytes # (auto) 0.41 K/uL (0.11-0.59); Monocytes % (auto) 1.6 %; Neutrophils # (auto) 23.96 K/uL (1.4-6.5); Neutrophils % (auto) 90.8 %
[2020-06-04 06:46] LABS: Blood Urea Nitrogen 9 mg/dl (7-18); Calcium 8.3 mg/dl (8.5-10.1); Carbon Dioxide 25 mmol/L (21-32); Chloride 110 mmol/L (98-107); Creatinine Clr Calc Pharmacy 128.1 ml/min; Est GFR (African American) > 150.0; Est GFR (Non-African American) 130.3; Glucose 95 mg/dl (70-99); Potassium 3.6 mmol/L (3.5-5.1); Sodium 141 mmol/L (136-145); Uric Acid 4.6 mg/dl (2.6-7.2)
[2020-06-04 06:54] LABS: Fibrinogen 367 mg/dl (184-400); INR 1.2 (0.9-1.1); Partial Thromboplastin Ratio 1.1; Partial Thromboplastin Time 28.8 Seconds (21.0-31.0); Prothrombin Time 11.8 Seconds (9.0-12.0)
--- NOTE | 2020-06-04 08:43 | Consultation Report ---
DATE OF CONSULTATION: 06/04/2020 REASON FOR CONSULTATION: Leukocytosis. 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 She apparently had traveled to [place] a couple of weeks ago via airplane. 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 The patient has been ill over the last 48 hours or so. She subsequently presented to the Emergency Room where a chest x-ray and a CT scan of the chest was performed. CTA of the chest was compromised attributable to motion. There was no evidence of pulmonary embolism. There was a right middle lobe and bibasilar pulmonary airspace opacities, atelectasis favored over pneumonia. Chest x-ray revealed no intrapulmonary processes. I was contacted in the Emergency Room by the admitting physician alerting me to her WBCs, which were in excess of 40,000. I was also told that there was a fair amount of immaturity within the white cell differential. I reviewed the smear today and a predominance of neutrophils are present. Her white count has fallen from 40,000 to 26,000. Hemoglobin and platelets are normal. Clinically, the patient seems to be feeling better, offered no specific complaints during this morning's encounter. She is currently on IV azithromycin. PAST MEDICAL HISTORY: Negative. PAST SURGICAL HISTORY: Negative. MEDICATIONS: She was utilizing [id number] nonsteroidal anti-inflammatories and cold medicine. ALLERGIES: No known drug allergies. SOCIAL HISTORY: Again, [employer] student. She is single. She does drink beer and wine socially. She denies illicit substances and not a smoker. FAMILY HISTORY: Noncontributory. REVIEW OF SYSTEMS: CONSTITUTIONAL: As per HPI, most notably for fevers, chills. She estimates her last known temperature around 100 degrees Fahrenheit. She is not anorexic or losing weight. SKIN: No rashes or lesions. HEENT: Negative for headaches, lightheadedness or dizziness. No acute visual or hearing deficits. No sinus symptoms, sore throat or dysphagia. LYMPH: No history of lymphoproliferative disease. CARDIAC: Negative for coronary artery disease. No current angina or palpitations. PULMONARY: Negative for COPD. She does report semi-productive cough, no dyspnea on exertion. No hemoptysis reported. GASTROINTESTINAL: Negative for abdominal pain, nausea, vomiting, diarrhea or constipation. GENITOURINARY: No hematuria, dysuria, urinary incontinence. PSYCHIATRIC: Negative for anxiety, depression or psychoses. ENDOCRINE: Negative for diabetes or thyroid disease. NEUROLOGIC: Negative for seizure, stroke, or migraine headache. MUSCULOSKELETAL: Negative for focal weakness. No arthralgias. HEMATOLOGIC: Positive for leukocytosis, predominant neutrophilia. PHYSICAL EXAMINATION: GENERAL: Very pleasant 19-year-old female, awake, alert and appropriate, in no acute distress. VITAL SIGNS: Temperature 36.8, pulse 84, respiratory rate 17, blood pressure 94/60. SKIN: Warm, dry, noncyanotic without petechia, rash or ecchymosis. HEENT: Head is atraumatic, normocephalic. Eyes: PERRLA, EOMI. Sclerae nonicteric. No conjunctival injection. Nares are patent without rhinorrhea or discharge. Throat is clear. Tongue midline. Mucous membranes are moist. NECK: Supple without JVD or thyromegaly. LYMPHATICS: No cervical or supraclavicular palpable nodes. HEART: Regular rate and rhythm. No clicks, rubs, murmurs or gallops. LUNGS: Clear to auscultation bilaterally. ABDOMEN: Soft, nontender, nondistended, without palpable hepatosplenomegaly. EXTREMITIES: No calf tenderness or swelling. MUSCULOSKELETAL: Strength and pulses are equal in all 4 quadrants. NEUROLOGICAL: She is awake, alert and oriented x3. LABORATORY DATA: WBC count 26,390, hemoglobin 11.8, platelet count 224,000, neutrophil count 23,960. No evidence of immaturity. Sodium 141, potassium 3.6, chloride 110, carbon dioxide 25, creatinine 0.6, BUN 9. Total bilirubin 1.5, AST 10, ALT 31. Procalcitonin 0.9. IMPRESSION: 1. Suspect underlying upper respiratory infection. 2. Tachycardia. 3. Leukocytosis (neutrophilia). PLAN: It was my pleasure to visit with the patient this morning at bedside. She describes 2 days of febrile illness manifested by myalgias, fever and cold-like symptoms. She was tested for COVID-19, found to be negative. She reports travel to [place] over the past couple weeks by air. She was started on azithromycin and is feeling better this morning. Her white count has retreated to 26,000 and no further workup is necessary. Her hemoglobin and platelets are otherwise normal as well. Initially, I think there was fear, patient revealed some immaturity within the white cell differential which I would attribute to a leukemoid reaction. She is otherwise healthy and there again no further investigation is necessary. Would continue to monitor her counts daily while admitted. If there are any questions or concerns, please feel free to contact me at any time. I will review her peripheral smear again this morning.
[2020-06-04] MEDS ORDERED: cefTRIAXone SODIUM 1,000 MG in DEXTROSE 5% 50 ML IV SCH (12:00)
--- NOTE | 2020-06-04 13:58 | Medical Student Progress Note ---
Date of Service June 04, 2020 Assessment & Plan (1) SOB (shortness of breath): Pt presented with acute onset of shortness of breath that started that morning after symptoms had improved from a prior similar episode earlier that week. Today, pt still has symptoms of shortness of breath, tachypneic, and shows evidence of accessory muscle use for respiration. Pt is not currently on supplemental oxygen. Pt had an ECG done that showed sinus tachycardia with a rate of [address] changes and evidence of a right bundle branch block. COntinues cardiac monitoring showed a sinus rhythm of 88. Chest x-ray showed clear lungs with normal cardiac silhouette, no pleural effusions, and no pneumothorax. CT angiogram showed no evidence of central pulmonary embolism and right middle lobe and bibasilar pulmonary airspace opacities. Blood smear showed per Dr. Ramirez notes showed some immaturity but was attributed to a leukemoid reaction. Pt had an presented with an elevated WBC of 32.36 which is now 26.39 today. Overall, WBC count combined with the normal blood smear and right middle lobe and bibasilar pulmonary airspace opacities suggest pneumonia as the most likely etiology the the pt's shortness of breath. Pt appears to be improving with cefepime and azithromycin but antibiotics will be adjusted according to blood culture results. Continue to monitor pt's O2 sat and symptoms for worsening shortness of breath. Repeat CBC tomorrow for monitoring WBC. (2) Pneumonia: Per above, pt has blood cultures pending as well as histoplasmosis and legionella antigen pending. Fungitel is pending as well. Pt is currently being treated empirically for cefepime and azithromycin. Continue on empiric antibiotics and adjust to oral antibiotics according to blood culture sensitivities. Laterality: right Lung location: unspecified part of lung Pneumonia type: due to unspecified organism Qualified Code(s): J18.9 - Pneumonia, unspecified organism (3) Leukocytosis: Pt's elevated WBC count is likely due to pneumonia. Blood smear showed evidence of leukemoid reaction likely secondary to pneumonia. Repeat CBC to track WBC count tomorrow. Leukocytosis type: unspecified Qualified Code(s): D72.829 - Elevated white blood cell count, unspecified (4) Abnormal finding on urinalysis: Urinalysis showed 30 WBC with epithelial cells. Pt denies any symptoms of dysuria. Pt is already being treated with antibiotics for suspected pneumonia. Urinalysis results is likely due to contamination in comparison to a UTI. (5) Anemia: Pt presente with a normal Hgb and Hct of 14.6 and 41.2 respectively. Today pt has a low Hgb and Hct of 11.8 and 33.7% respectively. Pt's anemia is likely dilational due to IV fluids via LR she has received since admission. Repeat CBC tomorrow to monitor for worsening anemia. (6) DVT prophylaxis: Pt is being treated with lovenox for DVT prophylaxis and is encouraged to ambulate. Admission and Anticipated Discharge Date Admission Date: June 03, 2020 Supervising Attestation Attending attestation Pt seen and examined in concert with Dr. Hayward, Std Dr Kaiser. In agreement with the documented findings as noted in the student/resident documentation with any exceptions or additions as noted here. Significant subjective improvement in shortness of breath compared to admission. On examination, AAOx4, NAD. S1/S2 nl RRR no MCG. CTAB without respiratory distress. Abd NT/ND BS+ve Pneumonia, community acquired - d/c cefepime, continue azithromycin. follow up cultures, histo, legionella and fungitel, but less concerned 2/2 significant improvement in WBC Abnormal UA - pending UCx, likely contaminant and w/o sx Else see student/resident documentation as noted. Subjective Pt is a 19 y/o female with no significant past medical history that presented to the ED with body aches, fever, and shortness of breath. Pt recently traveled to [place] 2 weeks ago to visit family. Pt denies any sick contacts during her trip. A week prior to admission, pt felt shortness of breath, diffuse body aches, and fever. Pt did not seek treatment but self treated with acetaminophen which resulted in her symptoms resolving within 48 hours. Pt did not have any residual symptoms until she woke up yesterday with the same shortness of breath, diffuse body aches, and fever. Pt states that symptoms started to get worse over the course of the morning which resulted in her going to the ED in order to seek treatment. Pt was admitted for suspected pneumonia and received IV hydration via LR at 125 per hour, IV cefepime and azithromycin, ibuprofen 400 mg PO Q6H PRN, and lovenox for DVT prophylaxis. CBC, BMP, blood smear, urinalysis, histoplasmosis and legionella antigen, and fungitel. An EKG was ordered along with continuous cardiac monitoring, chest X-ray, and CT angiogram of chest. Pt tested negative for COVID. Today pt admits to still feeling short of breath. Pt states that shortness of breath does not change whether she is ambulating or not. In addition, pt states that when she gets up to walk she develops a cough that is associated with bilateral chest pain. Review of Systems Eyes: no worsening vision Respiratory: Shortness of breath that does not change with rest or ambulation. Cough with associated chest pain that occurs predominantly with ambulation. Cardiovascular: no palpitations, no edema and no calf pain Gastrointestinal: no abdominal pain, no nausea and no vomiting Genitourinary: no dysuria Neurologic: no generalized weakness, no numbness and no paresthesia Physical Exam Eyes: EOM intact bilaterally Neck: Thyroid: no thyromegaly No lymphadenopathy Respiratory: + uses accessory muscles, + tachypneic and symmetric chest movement; no audible wheezes Diminished sounds on auscultation due to lack of inspiratory effort Cardiovascular: Rate/Rhythm: regular rate and regular rhythm Heart Sounds: normal S1 and normal S2; no click, no gallop, no murmur and no cardiac rub Vessels: no carotid bruit Gastrointestinal (Abdomen): normal bowel sounds, soft, nontender, no hepatosplenomegaly Neurologic: deep tendon reflexes 2+ bilaterally Results & Data ([facility]) Vital Signs (Past 12 Hours) Vital Signs Temp Pulse Resp BP Pulse Ox 06/04/20 07:46 36.8 C 84 17 94/60 L 92
[2020-06-04] MEDS: AZITHROMYCIN 500 MG in DEXTROSE 5% 250 ML IV SCH (17:11)
[2020-06-04] MEDS: ENOXAPARIN INJ 40 MG/0.4 ML SYR SQ SCH ×2 (20:42→22:20)
[2020-06-05 05:54] LABS: Basophils # (auto) 0.02 K/uL (0-0.2); Basophils % (auto) 0.2 %; Eosinophils # (auto) 0.52 K/uL (0-0.5); Eosinophils % (auto) 4.6 %; Hematocrit (blood only) 34.9 % (37-47); Hemoglobin 12.3 g/dL (12.0-16.0); Immature Granulocytes # (auto) 0.02 K/uL (0.00-0.02); Immature Granulocytes % (auto) 0.2 %; Lymphocytes # (auto) 2.27 K/uL (1.2-3.4); Mean Corpuscular Hemoglobin 30.4 pg (25-34); Mean Corpuscular Hgb Conc 35.2 g/dL (32-36); Mean Corpuscular Volume 86.2 fL (80-100); Monocytes # (auto) 0.49 K/uL (0.11-0.59); Monocytes % (auto) 4.3 %; Neutrophils # (auto) 8.05 K/uL (1.4-6.5); Neutrophils % (auto) 70.7 %; Platelet Count 232 K/uL (130-400); RDW Standard Deviation 41.6 fL (36.4-46.3); Red Blood Count 4.05 M/uL (4.2-5.4); White Blood Count 11.37 K/uL (4.8-10.8)
[2020-06-05 06:29] LABS: BUN Creatinine Ratio 13.2 (10-20); Blood Urea Nitrogen 7 mg/dl (7-18); Calcium 8.4 mg/dl (8.5-10.1); Carbon Dioxide 25 mmol/L (21-32); Chloride 110 mmol/L (98-107); Creatinine Clr Calc Pharmacy 134.8 ml/min; Est GFR (African American) > 150.0; Est GFR (Non-African American) 132.5; Glucose 84 mg/dl (70-99); Magnesium 2.1 mg/dl (1.8-2.4); Potassium 3.6 mmol/L (3.5-5.1); Sodium 142 mmol/L (136-145)
--- NOTE | 2020-06-05 09:12 | Discharge Summary ---
Date of Service June 05, 2020 Admission HPI Per Admitting Provider 19 YOF with no significant medical history. The patient is a student at [employer]. Recent travel to [place] 2 weeks ago via air plane. No recent sick contacts with her family or her roommates. She denies drug use or unprotected sex. Patient had about 2 day history of headache, body aches, and fever. Awoke this morning with shortness of breath and cough. The patient cough is productive at times with thick white yellow sputum. The patient initial COVID test is negative. The cough is associated with deep breath and other symptoms as above. She was taking Mucinex and Sudafed cold/allergy for 2 days with mild relief of symptoms. Patient had a CXR done in the ER and CT scan of the chest that was done. Patient is tachypneic into the high 20's on manual count and tachycardic, mildly hypoxic. She is not conversational dyspneic and denies any chest pain. Her roommates have 2 cats, that she does not interact with or empty the litter box. Her parents have no pets. WBC are 32, Patient will be a dmitted for pneumonia, IV hydration, IV antibiotics, follow clinical symptoms and biomarkers. Admission Exam Per Admitting Provider General: awake, alert, no apparent distress Head: Normocephalic, atraumatic ENT: PERRL, EOMI, no pharyngeal exudate, mucous membranes moist Neuro: AAO x 3, speech clear and appropriate, strength intact bilaterally 5/5, sensation intact and equal all extremities and dermatones, no pronator drift Chest: equal rise and fall of the chest, no accessory muscle use, tachypneic, clear to auscultation upper lobes bilateral, decreased right middle/lower lobe with egophany, on 2L NC, Cardiac: Regular rate and rhythm, telemetry reviewed, skin warm dry, cap refill <3 seconds, peripheral pusles +2 no JVD, no murmur, no JVD, no edema GI: NABS x 4 quadrants, soft, nontender to palpation, no rebound, guarding or tenderness : Spontaneously voiding, no pain, no CVA tenderness, Extremities: Normal inspection, no peripheral edema or erythema, calfs nontender to palpation Psych: Normal mood and affect MSK: No calf pain or tenderness, patient active Skin: no rash or erythema Principal Diagnosis community acquired pneumonia Discharge Exam GENERAL: No acute distress. Well developed and well nourished. Vital signs reviewed. EYES: EOMI. Anicteric sclerae. HENT: Moist mucous membranes. RESPIRATORY: Clear to auscultation bilaterally. No wheezing, rales, or rhonchi. CARDIOVASCULAR: Regular rate and rhythm. No murmurs. ABDOMEN: Soft, non-tender and non-distended. Normal bowel sounds. EXTREMITIES: No edema. Non-tender. SKIN: Warm, dry. No rashes or lesions. NEUROLOGIC: No focal neurological deficits. PSYCHIATRIC: Cooperative. Appropriate mood and affect. Discharge Data Allergies Allergy/AdvReac Type Severity Reaction Status Date / Time No Known Allergies Allergy Unverified 06/03/20 15:09 Consultations 06/03/20 16:25 ED Decision to Admit Stat 06/04/20 07:39 Consult Oncology Routine Ordered Studies 06/03/20 14:41 CT angio chest PE protocol Stat Hospital Course (1) Pneumonia: Alyse Reed is a 19 yo female with no significant past medical history who was admitted for pneumonia. Pneumonia - CAP treated with IV azithromycin and IV cefepime on admission. Changed to IV azithromycin and IV ceftriaxone on 06/04/20. - Transitioned to po abx for discharge, Azithromycin 250mg po daily x3 days, for a total duration of treatment of 5 days. - Clinically significantly improved and asymptomatic (except a slight cough) at day of discharge. - Patient advised to f/u with Dr. Hayward within 1 week (appt scheduled for , 06/10 at 1:30pm) for f/u and to establish care. - As outpatient, will follow up histo, legionella, and fungitel (however, suspicion for these is low given her significant clinical improvement and improvement in WBC) Leukocytosis - Patient with WBC of 32.36 on initial presentation, peaked at 40.53, and significantly improved to 11.37 on day of discharge - Leukocytosis attributed to dehydration and CAP - Blood cultures negative. Urine cultures negative. Abnormal finding on urinalysis - Urinalysis showed 30 WBC with epithelial cells. Pt denies any symptoms of dysuria. - Urine cx negative - No other concerning symptoms (2) Leukocytosis: (3) Abnormal finding on urinalysis: (4) Anemia: Total Time Total Time Spent Total Time Spent (In Minutes): See attending attestation Discharge Plan Discharge Items Patient Disposition: Home - Self-Care Reason For Visit: PNEUMONIA Discharge Diagnosis: pneumonia Condition on Discharge: Good Activity: Per Instructions section Non-emergency contact: Primary Care Provider Call non-emergency contact if: you have any medication questions, your symptoms worsen and you have a fever Follow-up/Referrals: Kim Hayward, DO [Resident] - Diet: Regular Addtl Attending Provider Instructions: Alyse Reed, It was our pleasure to care for you at [facility] from 06/03/20 to 06/05/20. You initially presented to the emergency department with shortness of breath and fever. You have been diagnosed with community acquired pneumonia. Your blood cultures and urine cultures were both negative. While in the hospital, you were treated with IV antibiotics. At this time, you have done well and have clinically improved. We will transition you from IV antibiotics to antibiotics by mouth. Take the azithromycin by mouth for the next 3 days (last dose 06/07/2020). You can take Tylenol 500mg by mouth every 6 hours as needed or Ibuprofen 600mg by mouth every 6 hours as needed for pain or fever. Make sure to use good hand hygiene/wash your hands frequently at home. Wear a mask when out of your home. Follow up with Dr. Hayward on June at 1:30 pm. Her office is located at [address] [place] [address], [address] [address]. Call the office at [phone] with any questions or concerns. Pending Studies at Discharge: Yes Studies:: labs Stand-Alone Forms: [facility] [employer], Smoking Cessation Medications and DC Order Prescriptions: New azithromycin 250 mg tablet 250 mg PO DAILY 3 Days Qty: 3 RF: 0 Continued ibuprofen [Advil] 200 mg Tablet 400 mg PO Q6H PRN (Reason: Fever Or Pain) RF: 0 chlorpheniramine-dextromethorp Liquid 1 ea PO UD RF: 0 Discharge Orders: Discharge Order (Routine); Ordered 06/05/20 Ordered By: Kim Cowan/Other Patient Handouts: What Is Pneumonia?, Treating Pneumonia, Respir atory Infect Common Prevention Admission Data Admit Date/Time: 06/03/20 17:50 Attending Provider: Ganesh Hurley Admit Provider: Isaac Augustin Primary Care Provider: [facility] Other Providers: Isaac Augustin ; Yong Ramirez V. Other Interventions: Discharge Summary Assessment (RN) Last Done: 06/05/20 09:48 Supervising Physician Co-Signing Physician Notes Attending attestation Pt seen and examined in concert with Dr. Hayward. In agreement with the documented findings as noted in the resident documentation with any exceptions or additions as noted here. Return to baseline for shortness of breath at rest, does have mild discomfort with light activity in room. Mild nonproductive cough reported by patient today On examination, AAOx4, NAD. S1/S2 nl RRR no MCG. CTAB without respiratory distress. Abd NT/ND BS+ve Pneumonia, community acquired - complete course of azithromycin. follow up histo, legionella and fungitel. BCx NGTD Else see resident documentation as noted. Total attending time spent with this patients case on day of discharge including counseling and coordination of care elements: 35 minutes. Resident Activity Tracking Resident Involvement: Resident Care Provided Care Provided: Adult Hospital Medicine
[2020-06-10 18:26] LABS: Fungitell (1-3)-B-D-Glucan <31
== END 2020-06-05 11:10 | disposition home or self-care (01) | DRG 195 ==
LOC: ED 12:58 → 2N 17:50 → SUATTDRO 17:50 → 2N 19:02